=== PATIENT | female | born 1985 | race African-American/Black ===

== ENCOUNTER → 2019-09-13 | Day surgery (SDC) | payer BC ==
[~2019-09-13] MED LIST: FAMOTIDINE20 MG PO; FENTANYL CITRATE/PF 100MCG/2 ML INJ ONE; LIDOCAINE HCL 2% LOCAL INJ 5 ML SDV VIAL INJ ONE; MIDAZOLAM HCL 2 MG/2 ML VIAL ONE; ONDANSETRON HCL8 MG PO; PROPOFOL IV EMULSION 10 MG/ML 20 ML VIAL ONE
--- OUTSIDE RECORDS SUMMARY | 2019-09-13 12:21 | XMS REPORT ---
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 active Latoya Louise Endomyometritis completed - Latoya Louise Dyspareunia (not billable after 07/22/2016) completed - Latoya Louise Vaginal odor active Latoya Louise WELL WOMAN completed - Latoya Louise Poison elmo dermatitis completed - Latoya Louise ENCOUNTERS Date Type Provider Location Encounter Diagnosis - Ambulatory Encounter Latoya Louise [facility] - Ambulatory Encounter Latoya Louise [facility] - Ambulatory Encounter Latoya Hernandez [facility] Vaginal odorAnnual social worker psychiatric examHealth screeningHeavy menstruationStd screening - Ambulatory Encounter Zeina Osman Da[facility] UNK - Ambulatory Encounter Latoya Louise [facility] UNK - Ambulatory Encounter Latoya Fragoso [facility] UNK - Ambulatory Encounter Zeina Cain Tamia Mace [facility] UNK - Ambulatory Encounter Zeina Fragoso Ant Mace [facility] UNK - Ambulatory Encounter Latoya Klein Solange Dani [facility] UNK - Ambulatory Encounter Latoya Louise Latoya Solange Louise [facility] UNK - Ambulatory Encounter Latoya Klein Solange Louise [facility] UNK - Ambulatory Encounter Latoya Louise Latoya Solange Louise [facility] - Ambulatory Encounter Latoya Klein Solange Dani Hernandez [facility] Poison elmo dermatitisWELL WOMANVaginal odorDyspareunia (not billable after 07/22/2016)Endomyometritis - Ambulatory Encounter Fox Thacker [facility] - Ambulatory Encounter [facility] - Ambulatory Encounter Fox Mcelroy [facility] - Ambulatory Encounter Fox Thacker [facility] - Ambulatory Encounter Fox Hernandez [facility] Vaginal odorDyspareunia (not billable after 07/22/2016)Endomyometritis - Ambulatory Encounter Sharda Helm [facility] - Ambulatory Encounter Chani Cadena [facility] - Ambulatory Encounter Chani Cadena [facility] - Ambulatory Encounter Fox Thacker [facility] UNK - Ambulatory Encounter Fox Thacker [facility] UNK - Ambulatory Encounter Fox Thacker [facility] UNK - Ambulatory Encounter Fox Thacker [facility] UNK - Ambulatory Encounter Fox Hernandez [facility] WELL WOMAN - Ambulatory Encounter Selena Hodgsonannika [facility] UNK - Ambulatory Encounter Nohemi Amezquita [facility] UNK - Ambulatory Encounter Nohemi Arvizu [facility] Poison elmo dermatitis - Ambulatory Encounter [facility] V[facility]NS No Information Available Allergies No Known Allergy Information REASON FOR REFERRAL No Information Available RESULTS Date Observation Value Provider Reference Range Interpretation Location Neisseria gonorrhoeae DNA probe Negative [facility] Negative " chlamydia DNA probe Negative [facility] Negative " trichomonas vaginalis, urine Negative [facility] Negative trichomonas vaginalis, urine Negative [facility] Negative Neisseria gonorrhoeae DNA probe Negative [facility] Negative " chlamydia DNA probe Negative [facility] Negative Human Papillomavirus test result HPVNotTested [facility] Neisseria gonorrhoeae DNA probe Negative [facility] Negative " chlamydia DNA probe Negative [facility] Negative hepatitis B surface antigen Negative [facility] Negative " blood glucose, random 97 mg/dL [facility] 65-99 " thyroid stimulating hormone, serum 2.070 u[iU]/mL [facility] 0.450-4.500 " rapid plasma reagin antibody, serum Non Reactive [facility] Non Reactive " hepatitis C antibody, serum <0.1 [facility] 0.0-0.9 " HIV-CMIA (Chemiluminescent Microparticle Immuno Assay) Non Reactive [facility] Non Reactive " rubella antibody, serum, IgG 1.00 [facility] Immune >0.99 " immature granulocytes, percentage of total cells, blood 0 % [facility] " basophil count, absolute 0.0 x10E3/uL [facility] 0.0-0.2 " Eosinophil Absolute Count 0.1 X10E3/UL [facility] 0.0-0.4 " monocyte count, blood, automated 0.5 X10E3/UL [facility] 0.1-0.9 " lymphocyte count, blood, automated 2.2 X10E3/UL [facility] 0.7-3.1 " Absolute Neutrophils 5.5 X10E3/UL [facility] 1.4-7.0 " basophils as percent of blood leukocytes 0 % [facility] " eosinophils as percent of blood leukocytes 1 % [facility] " monocytes as percent of blood leukocytes 6 % [facility] " lymphocytes as percent of blood leukocytes 26 % [facility] " neutrophils as percent of blood leukocytes 67 % [facility] " platelet count 423 X10E3/UL [facility] 150-379 High " red blood cell distribution width 14.2 % [facility] 12.3-15.4 " mean corpuscular hemoglobin concentration, RBC 32.7 G/DL [facility] 31.5-35.7 " mean corpuscular hemoglobin, RBC 30.3 pg [facility] 26.6-33.0 " mean corpuscular volume, RBC 93 fL [facility] 79-97 " hematocrit, blood 37.0 % [facility] 34.0-46.6 " hemoglobin, blood 12.1 g/dL [facility] 11.1-15.9 " erythrocyte (RBC) count 4.00 X10E6/UL [facility] 3.77-5.28 " leukocyte count, blood 8.3 X10E3/UL [facility] 3.4-10.8 HISTORY OF IMMUNIZATIONS No Information Available HISTORY OF MEDICATION USE Medication Instructions Dates Provider Comments METRONIDAZOLE 500 MG ORAL TABLET 1 tab by mouth twice a day - Fox Thacker IBUPROFEN 800 MG ORAL TABLET 1 tab Twice a Day - Latoya Louise DOXYCYCLINE HYCLATE 100 MG ORAL CAPSULE 1 tab Twice a Day for 10 days - Latoya Louise CIPRO 500 MG ORAL TABLET 1 tab Twice a Day for 10 days - Latoya Louise MEDROL 4 MG ORAL TABLET THERAPY PACK use as directed - Latoya Louise SOCIAL HISTORY Date Observation Value Provider social history E&M Single. Not homeless. Born in [facility]. City: [place]. Employed full-time. [address]. Highest education level: 9th-12th grade. Sex at : female. Sexual orientation: Heterosexual. Gender identity: Female. Gender of partner(s): male. Age of first sexual intercourse: 17. Sexually Active: yes. Chani Cadena " social history reviewed E&M reviewed today Chani Cadena " sexual orientation Heterosexual Chani Cadena " passive cigarette smoke exposure No Chani Cadena " smoking status never smoker Chani Cadena time of call 06/09/2019 12:46 PM Eloise Osman time of call 06/06/2019 3:11 PM Yumi Christina time of call 06/06/2019 11:54 AM Ant Mace time of call 06/06/2019 11:49 AM Ant Mace social history reviewed E&M reviewed today Aileen Hernandez " social history E&M Single. Not homeless. Born in [facility]. City: [place]. Employed full-time. [address]. Highest education level: 9th-12th grade. Sex at : female. Sexual orientation: Heterosexual. Gender identity: Female. Gender of partner(s): male. Age of first sexual intercourse: 17. Sexually Active: yes. Aileen Hernandez " Occupation [address] Aileen Hernandez " drug use, illicit Never Aileen Hernandez " alcohol use Currently Aileen Hernandez " sexual orientation Heterosexual Aileen Hernandez " is there any chance that you could be ? No Aileen Hernandez " passive cigarette smoke exposure No Aileen Hernandez " sexual orientation Heterosexual Aileen Hernandez " is there any chance that you could be ? No Aileen Hernandez " passive cigarette smoke exposure No Aileen Hernandez " smoking status never smoker Aileen Hernandez social history E&M Single. Not homeless. Born in [facility]. City: [place]. Not employed. Unemployed. Highest education level: 9th-12th grade. Gender identity: Female. Gender of partner(s): male. Age of first sexual intercourse: 17. Sexually Active: Yes. Sex at : female. Aileen Hernandez " social history reviewed E&M reviewed today Aileen Hernandez " is there any chance that you could be ? No Aileen Hernandez " passive cigarette smoke exposure No Aileen Hernandez " smoking status never smoker Aileen Hernandez Occupation #1 Unemployed Nohemi Amezquita " drug use, illicit Never Shawnee Good " alcohol use, frequency holidays/special occasions only Shawnee Good " alcohol use Currently Shawnee Good " social history reviewed E&M reviewed today Shawnee Good " social history E&M Single. Not homeless. Born in [facility]. City: [place]. Not employed. Unemployed. Highest education level: 9th-12th grade. Gender identity: Female. Gender of partner(s): male. Age of first sexual intercourse: 17. Sexually Active: Yes. Sex at : female. Nohemi Amezquita " sex at female Shawnee Good " patient considered to be homeless No Shawnee Arvizu " passive cigarette smoke exposure No Shawnee Nolberto " smoking status never smoker Shawnee Arvizu " is there any chance that you could be ? No Shawnee Arvizu " Exercise Program Referral Renato Arvizu " Weight Management Counseling Provided Renato Arvizu " Nutrition intervention Renato Arvizu FUNCTIONAL STATUS No Information Available MENTAL STATUS Date Observation Value Provider Generalized Anxiety Disorder Questionnaire - Question 2 0 Chani Cadena " Generalized Anxiety Disorder Questionnaire - Question 1 0 Chani Cadena Generalized Anxiety Disorder Questionnaire - Question 2 0 Aileen Hernandez " Generalized Anxiety Disorder Questionnaire - Question 1 0 Aileen Hernandez assessment of judgment and insight E&M intact Fox Thacker " assessment of mood and affect E&M no depression, anxiety, or agitation Fox Thacker " Generalized Anxiety Disorder Questionnaire - Question 2 0 Aileen Hernandez " Generalized Anxiety Disorder Questionnaire - Question 1 0 Aileen Hernandez assessment of judgment and insight E&M intact Fox Thacker " assessment of mood and affect E&M no depression, anxiety, or agitation Fox Thacker " Generalized Anxiety Disorder Questionnaire - Question 2 0 Aileen Hernandez " Generalized Anxiety Disorder Questionnaire - Question 1 0 Aileen Hernandez assessment of judgment and insight E&M intact Nohemi Amezquita " assessment of mood and affect E&M no depression, anxiety, or agitation Abelyesenia Alirio " Generalized Anxiety Disorder Questionnaire - Question 2 0 Shawnee Good " Generalized Anxiety Disorder Questionnaire - Question 1 0 Shawnee Good MEDICAL EQUIPMENT No Information Available FAMILY HISTORY No Information Available INSURANCE PROVIDERS Payer name Policy type / Coverage type Covered libertarian ID [employer]iding [employer] insurance company [id number] [email or web address] [facility] [employer] Other [id number] ADVANCE DIRECTIVES Name Date DISCUSSED - NO DECISION MADE TREATMENT PLAN Date Name Chlamydia/GC Amplification (Cervical) Vaginitis/Vaginosis, DNA Probe (Affirm) ([facility]) RPR, Rfx Qn RPR/Confirm TP HIV 1/2 ANTIGEN/ANTIBODY, FOURTH GENERATION W/RFL HBsAg Screen HCV Antibody TSH Rfx on Abnormal to Free T4 Pap w/HPV w rflx 16/18/45 (30+) Lipid Panel Comp. Metabolic Panel (14) CBC With Differential/Platelet Chlamydia/GC Amplification (Cervical) Vaginitis/Vaginosis, DNA Probe (Affirm) ([facility]) Chlamydia/GC Amplification Vaginitis/Vaginosis, DNA Probe (Affirm) TSH Rfx on Abnormal to Free T4 RPR Rubella Antibodies, IgG Pap IG, rfx HPV ASCU (21-29) HIV 1/2 ANTIGEN/ANTIBODY, FOURTH GENERATION W/RFL HCV Antibody HBsAg Screen Glucose, Serum Chlamydia/GC Amplification CBC With Differential/Platelet Est Patient Well Exam (18 - 39 Yrs) - 32260 Est Patient Exp Problem - 05709 Est Patient Exp Problem - 30916 [place] - In House Urinalysis - - In House Urinalysis - Dip only - In House Handling of specimen for transfer Venipuncture New Patient Well Exam (18 - 39 Yrs) - 80153 Injection, methylprednisolone sodium succinate, up to 40 mg New Patient Problem Focus - 47020 Injection, medroxyprogesterone acetate (Depo), 150 mg IM or SQ Injection HISTORY OF PROCEDURES Procedure Date Procedure Name Provider Procedure Notes Status [place] - In House Fox Thacker completed Urinalysis - - In House Fox Thackre completed Urinalysis - Dip only - In House Fox Thacker completed Venipuncture Fox Thacker completed Injection, methylprednisolone sodium succinate, up to 40 mg Nohemi Amezquita completed GOALS No Information Available HEALTH CONCERNS No Information Available
--- OUTSIDE RECORDS SUMMARY | 2019-09-13 12:21 | XMS REPORT ---
Author Author Admin, [place] Organization [facility] Address [address] [place] [address] Phone Allergies, Adverse Reactions, Alerts Allergy Name Reaction Description Start Date Severity Status Provider No Known Allergies Aileen Hernandez CMA Conditions or Problems Problem Name Problem Code Onset Date Status Entry Date Provider Comment Standard Description Annotate Vaginitis and vulvovaginitis 616.10 Active Laotya Louise MD Vaginitis and vulvovaginitis, unspecified Dyspareunia (not billable after 07/22/2016) ICD-625.0 Inactive Latoya Louise MD Endomyometritis ICD-615.9 Inactive Latoya Louise MD Pelvic pain 625.9 Inactive Fox Thacker DO Unspecified symptom associated with female genital organs WELL WOMAN ICD-V72.31 Inactive Latoya Louise MD Poison elmo dermatitis ICD-692.6 Inactive Latoya Louise MD Dyspareunia (not billable after 07/22/2016) 625.0 Resolved Latoya Louise MD Dyspareunia Endomyometritis 615.9 Resolved Latoya Louise MD Unspecified inflammatory disease of uterus WELL WOMAN V72.31 Resolved Latoya Louise MD Routine gynecological examination Poison elmo dermatitis 692.6 Resolved Latoya Louise MD Contact dermatitis and other eczema due to plants [except food] Medication List Medication Instructions Start Date Stop Date Generic Name NDC Status Provider Patient Instruction FLUCONAZOLE 150 MG ORAL TABLET take 1 tab By Mouth daily FLUCONAZOLE 09787618987 Active Latoya Louise MD Active METRONIDAZOLE 500 MG ORAL TABLET 1 tab by mouth twice a day METRONIDAZOLE 500 MG ORAL TABLET 420972 METRONIDAZOLE Inactive CIPRO 500 MG ORAL TABLET 1 tab Twice a Day for 10 days CIPRO 500 MG ORAL TABLET 218123 CIPROFLOXACIN HCL Inactive DOXYCYCLINE HYCLATE 100 MG ORAL CAPSULE 1 tab Twice a Day for 10 days DOXYCYCLINE HYCLATE 100 MG ORAL CAPSULE 8198198 DOXYCYCLINE HYCLATE Inactive IBUPROFEN 800 MG ORAL TABLET 1 tab Twice a Day IBUPROFEN 800 MG ORAL TABLET 827773 IBUPROFEN Inactive MEDROL 4 MG ORAL TABLET THERAPY PACK use as directed MEDROL 4 MG ORAL TABLET THERAPY PACK 172422 METHYLPREDNISOLONE Inactive METRONIDAZOLE 500 MG ORAL TABLET 1 tab by mouth twice a day METRONIDAZOLE 48460938011 No Longer Active Fox Thacker DO Active CIPRO 500 MG ORAL TABLET 1 tab Twice a Day for 10 days CIPROFLOXACIN HCL 98203674975 No Longer Active Latoya Louise MD Active DOXYCYCLINE HYCLATE 100 MG ORAL CAPSULE 1 tab Twice a Day for 10 days DOXYCYCLINE HYCLATE 11013660240 No Longer Active Latoya Louise MD Active IBUPROFEN 800 MG ORAL TABLET 1 tab Twice a Day IBUPROFEN 94938638999 No Longer Active Latoya Louise MD Active MEDROL 4 MG ORAL TABLET THERAPY PACK use as directed METHYLPREDNISOLONE 47316656450 No Longer Active Latoya Louise MD Active Advance Directives Directive Description Start Date DISCUSSED - NO DECISION MADE Vital Signs Date Name Value Unit Range Description blood pressure, diastolic 87 mm[Hg] BP bell blood pressure, systolic 125 mm[Hg] BP sys height E&M 59 [in_us] Bdy height pulse rate E&M 95 /min Heart rate temperature E&M 98.4 [degF] Body temperature weight E&M 132 [lb_av] Weight Measured Diagnostic Results Date Name Value Unit Range Description Lab Report: Vaginitis/Vaginosis, DNA Probe, Chlamydia/GC Amplification - Microbiology Neisseria gonorrhoeae DNA probe Negative Negative Lab Report: CBC With Differential/Platelet, Rubella Antibodies, IgG, Orellana ... - Hematology hematocrit, blood 37.0 % 34.0-46.6 Lab Report: CBC With Differential/Platelet, Rubella Antibodies, IgG, Orellana ... - Chemistry thyroid stimulating hormone, serum 2.070 u[iU]/mL 0.450-4.500 Lab Report: CBC With Differential/Platelet, Rubella Antibodies, IgG, Orellana ... - Hematology neutrophils as percent of blood leukocytes 67 % basophils as percent of blood leukocytes 0 % Lab Report: CBC With Differential/Platelet, Rubella Antibodies, IgG, Orellana ... - Serology rapid plasma reagin antibody, serum Non Reactive Non Reactive rubella antibody, serum, IgG 1.00 Immune >0.99 Lab Report: CBC With Differential/Platelet, Rubella Antibodies, IgG, Orellana ... - Chemistry hepatitis B surface antigen Negative Negative Lab Report: CBC With Differential/Platelet, Rubella Antibodies, IgG, Orellana ... - Hematology mean corpuscular hemoglobin, RBC 30.3 pg 26.6-33.0 mean corpuscular hemoglobin concentration, RBC 32.7 G/DL % 31.5-35.7 erythrocyte (RBC) count 4.00 X10E6/UL 10*6/mm3 3.77-5.28 hemoglobin, blood 12.1 g/dL 11.1-15.9 Lab Report: CBC With Differential/Platelet, Rubella Antibodies, IgG, Orellana ... - Serology hepatitis C antibody, serum <0.1 0.0-0.9 Lab Report: CBC With Differential/Platelet, Rubella Antibodies, IgG, Orellana ... - Chemistry Absolute Neutrophils 5.5 X10E3/UL 10*3/uL 1.4-7.0 Lab Report: CBC With Differential/Platelet, Rubella Antibodies, IgG, Orellana ... - Hematology lymphocytes as percent of blood leukocytes 26 % mean corpuscular volume, RBC 93 fL 79-97 basophil count, absolute 0.0 x10E3/uL 0.0-0.2 monocytes as percent of blood leukocytes 6 % Lab Report: Vaginitis/Vaginosis, DNA Probe, Chlamydia/GC Amplification - Urinalysis trichomonas vaginalis, urine Negative Negative Lab Report: Pap IG, rfx HPV ASCU - Lab Human Papillomavirus test result HPVNotTested Lab Report: CBC With Differential/Platelet, Rubella Antibodies, IgG, Orellana ... - Hematology Eosinophil Absolute Count 0.1 X10E3/UL 10*3/uL 0.0-0.4 eosinophils as percent of blood leukocytes 1 % Lab Report: Vaginitis/Vaginosis, DNA Probe, Chlamydia/GC Amplification - Lab chlamydia DNA probe Negative Negative Lab Report: CBC With Differential/Platelet, Rubella Antibodies, IgG, Orellana ... - Chemistry blood glucose, random 97 mg/dL 65-99 Lab Report: CBC With Differential/Platelet, Rubella Antibodies, IgG, Orellana ... - Hematology red blood cell distribution width 14.2 % 12.3-15.4 leukocyte count, blood 8.3 X10E3/UL 10*3/mm3 3.4-10.8 monocyte count, blood, automated 0.5 X10E3/UL 10*3/uL 0.1-0.9 Lab Report: CBC With Differential/Platelet, Rubella Antibodies, IgG, Orellana ... - Chemistry immature granulocytes, percentage of total cells, blood 0 % Lab Report: CBC With Differential/Platelet, Rubella Antibodies, IgG, Orellana ... - Hematology platelet count 423 X10E3/UL 10*3/mm3 800-064 2059/06/07 lymphocyte count, blood, automated 2.2 X10E3/UL 10*3/mm3 0.7-3.1 Encounters Date Encounter Provider Code Facility 16:48:39 CDT Est Patient Exp Problem - 91802 Latoya Louise MD CPT-48214 [facility] DISPOSITION CLERK 23:04:19 CDT Est Patient Exp Problem - 47662 Fox Thacker DO CPT-73779 [facility] 11:15:35 CDT New Patient Problem Focus - 68791 Nohemi Amezquita POCKET GRINDER OPERATOR CPT-35508 [facility] Procedures Code Procedure Name Date Entry Date Standard Description CPT-45634 [place] - In House 10:14:37 CDT CPT-64597 Urinalysis - - In House 10:14:36 CDT CPT-65006 Urinalysis - Dip only - In House 10:14:36 CDT CPT-61415 Handling of specimen for transfer 10:14:36 CDT CPT-21476 Venipuncture 10:14:36 CDT CPT-31471 New Patient Well Exam (18 - 39 Yrs) - 10183 10:14:35 CDT CPT-J2920 Injection, methylprednisolone sodium succinate, up to 40 mg 13:15:27 CDT
--- OUTSIDE RECORDS SUMMARY | 2019-09-13 12:21 | XMS REPORT ---
Author Orlando Prasad [facility] eClinicalWorks Address Unknown Phone Unavailable Care Team Providers Care Drilling And Production Superintendent Name Role Phone Orlando Guido CP Unavailable Allergies, Adverse Reactions, Alerts Substance Reaction Event Type N.K.D.A. Info Not Available Non Drug Allergy Problems Problem Type Condition Code Onset Dates Condition Status Assessment Screening for cervical cancer Z12.4 Active Assessment Herpes simplex vulvovaginitis A60.04 Active Problem Herpes simplex vulvovaginitis A60.04 Active Medications Medication Code System Code Instructions Start Date End Date Status Dosage Acyclovir [facility] [id number] 400 MG Orally three times a day Nov 09, 2017 Active 1 tablet Results Name Result Date Reference Range Unit Abnormality Flag HSV,CULTURE and TYPING, (719769) [facility] Pap IG, Ct-Ng, HPV-hr (275111) >30 +STD ----Chlamydia, Nuc. Acid Amp Negative 20171109 Negative ----Gonococcus, Nuc. Acid Amp Negative 20171109 Negative ----Test Methodology: TNP 20171109 ----HPV, high-risk Negative 20171109 Negative ----. . 20171109 Summary Purpose eClinicalWorks Submission
--- OUTSIDE RECORDS SUMMARY | 2019-09-13 12:22 | XMS REPORT ---
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 Latoya Louise Endomyometritis completed - Latoya Louise Dyspareunia (not billable after 07/22/2016) completed - Latoya Louise Vaginal odor active Latoya Louise WELL WOMAN completed - Latoya Louise Poison elmo dermatitis completed - Latoya Louise ENCOUNTERS Date Type Provider Location Encounter Diagnosis - Ambulatory Encounter Latoya Louise [facility] UNK - Ambulatory Encounter Latoya Louise [facility] [place] [facility] [employer] UNK - Ambulatory Encounter Latoya Louise [facility] [place] [facility] [facility] [employer] UNK - Ambulatory Encounter Latoya Louise [facility] [place] [facility]INE [employer] [facility] UNK - Ambulatory Encounter Latoya Hernandez [facility] [place] [facility] MARINE [employer] [employer] Vaginal odorAnnual die drawing checker examHealth screeningHeavy menstruationStd screening - Ambulatory Encounter [facility] [place] UNK - Ambulatory Encounter [facility]K - Ambulatory Encounter Latoya Herndonlymiah Christina Zeina [facility] [place] [facility] UNK - Ambulatory Encounter Zeina Fragoso [facility] UNK - Ambulatory Encounter Zeina Fragoso [facility] UNK - Ambulatory Encounter [facility] [place] [facility] UNK - Ambulatory Encounter Latoya Louise [facility] [place] [facility] [employer] [facility] UNK - Ambulatory Encounter Latoya Louise [facility] [place] [facility] [employer] [employer] [facility] UNK - Ambulatory Encounter Latoay Klein [facility] [place] [facility] [employer] UNK - Ambulatory Encounter Latoya [facility] [place] [facility] Poison elmo dermatitisWELL WOMANVaginal odorDyspareunia (not billable after 07/22/2016)Endomyometritis - Ambulatory Encounter [facility] UNK - Ambulatory Encounter Fox Thacker [facility] UNK - Ambulatory Encounter [facility] UNK - Ambulatory Encounter Fox Thacker [facility] UNK - Ambulatory Encounter Fox Hernandez [facility] Vaginal odorDyspareunia (not billable after 07/22/2016)Endomyometritis - Ambulatory Encounter Sharda [facility] UNK - Ambulatory Encounter Chani Buiza [facility] UNK - Ambulatory Encounter Chani Buiza [facility] UNK - Ambulatory Encounter Fox Thacker [facility] UNK - Ambulatory Encounter Fox Thacker [facility] UNK - Ambulatory Encounter Fox Thacker [facility] UNK - Ambulatory Encounter Fox Thacker [facility] UNK - Ambulatory Encounter Fox Hernandez [facility] WELL WOMAN - Ambulatory Encounter Selena Minor [facility] UNK - Ambulatory Encounter Nohemi Amezquita [facility] UNK - Ambulatory Encounter Nohemi Monge Mosgulynn Arvizu [facility] Poison elmo dermatitis - Ambulatory Encounter Nohemi [facility] UNK VITAL SIGNS No Information Available Allergies No Known Allergy Information REASON FOR REFERRAL No Information Available RESULTS Date Observation Value Provider Reference Range Interpretation Location hepatitis B surface antigen Negative [facility] Negative " thyroid stimulating hormone, serum 1.190 u[iU]/mL [facility] 0.450-4.500 " hepatitis C antibody, serum <0.1 [facility] 0.0-0.9 " HIV-CMIA (Chemiluminescent Microparticle Immuno Assay) Non Reactive [facility] Non Reactive " rapid plasma reagin antibody, serum Non Reactive [facility] Non Reactive " LDL cholesterol, serum 87 mg/dL [facility] 0-99 " very low density lipoproteins 13 mg/dL [facility] 5-40 " HDL cholesterol, serum 83 mg/dL [facility] >39 " triglyceride, serum, fasting 66 mg/dL [facility] 0-149 " cholesterol, serum 183 mg/dL [facility] 100-199 " alanine aminotransferase (SGPT), serum 28 1/L [facility] 0-32 " aspartate aminotransferase (SGOT), serum 40 1/L [facility] 0-40 " alkaline phosphatase, serum 44 1/L [facility] 39-117 " bilirubin, serum, total 0.7 mg/dL [facility] 0.0-1.2 " albumin/globulin ratio, serum 1.7 [facility] 1.2-2.2 " globulin, serum 2.8 [facility] 1.5-4.5 " albumin, serum 4.8 g/dL [facility] 3.5-5.5 " protein, total, serum 7.6 g/dL [facility] 6.0-8.5 " calcium, serum 9.7 mg/dL [facility] 8.7-10.2 " carbon dioxide, venous blood 23 mmol/L [facility] 20-29 " chloride, serum 99 mmol/L [facility] 96-106 " potassium, serum 4.1 mmol/L [facility] 3.5-5.2 " sodium, serum 142 mmol/L [facility] 134-144 " urea nitrogen/creatinine ratio, serum 16 [facility] 9-23 " eGFR if 94 mL/min/((173/100).m2) [facility] >59 " Estimated Glomerular Filtration Rate (calc) 82 mL/min/((173/100).m2) [facility] >59 " creatinine, serum 0.93 mg/dL [facility] 0.57-1.00 " urea nitrogen, blood 15 mg/dL [facility] 6-20 " blood glucose, random 90 mg/dL [facility] 65-99 " immature granulocytes, percentage of total cells, blood 0 % [facility] Not Estab. " basophil count, absolute 0.0 x10E3/uL [facility] 0.0-0.2 " Eosinophil Absolute Count 0.1 X10E3/UL [facility] 0.0-0.4 " monocyte count, blood, automated 0.4 X10E3/UL [facility] 0.1-0.9 " lymphocyte count, blood, automated 2.8 X10E3/UL [facility] 0.7-3.1 " Absolute Neutrophils 5.3 X10E3/UL [facility] 1.4-7.0 " basophils as percent of blood leukocytes 0 % [facility] Not Estab. " eosinophils as percent of blood leukocytes 2 % [facility] Not Estab. " monocytes as percent of blood leukocytes 5 % [facility] Not Estab. " lymphocytes as percent of blood leukocytes 33 % [facility] Not Estab. " neutrophils as percent of blood leukocytes 60 % [facility] Not Estab. " platelet count 379 X10E3/UL [facility] 150-450 " red blood cell distribution width 13.1 % [facility] 12.3-15.4 " mean corpuscular hemoglobin concentration, RBC 33.2 G/DL [facility] 31.5-35.7 " mean corpuscular hemoglobin, RBC 30.8 pg [facility] 26.6-33.0 " mean corpuscular volume, RBC 93 fL [facility] 79-97 " hematocrit, blood 38.3 % [facility] 34.0-46.6 " hemoglobin, blood 12.7 g/dL [facility] 11.1-15.9 " erythrocyte (RBC) count 4.12 X10E6/UL [facility] 3.77-5.28 " leukocyte count, blood 8.7 X10E3/UL [facility] 3.4-10.8 Neisseria gonorrhoeae DNA probe Negative [facility] Negative [...] MEDICATION USE Medication Instructions Dates Provider Comments FLUCONAZOLE 150 MG ORAL TABLET take 1 tab By Mouth daily - Latoya Louise METRONIDAZOLE 500 MG ORAL TABLET 1 tab [...] history E&M Single. Not homeless. Born in [facility]. City: [place]. Employed full-time. [employer]. Highest education level: 9th-12th grade. Sex [...] history E&M Single. Not homeless. Born in [facility]. City: [place]. Employed full-time. [employer]. Highest education level: 9th-12th grade. Sex [...] history E&M Single. Not homeless. Born in [facility]. City: [place]. Not employed. Unemployed. Highest education level: 9th-12th [...] history E&M Single. Not homeless. Born in [facility]. City: [place]. Not employed. Unemployed. Highest education level: 9th-12th grade. Gender identity: Female. Gender of partner(s): male. Age of first sexual intercourse: 17. Sexually Active: Yes. Sex at : female. Nohemi Amezquita " sex at female [place] [facility] " patient considered to be homeless No [place] Nolberto " passive cigarette smoke exposure No [place] Good " smoking status never smoker [place] " is there any chance that you could be ? No [place] Ar[facility]izu " Exercise Program Referral T [place] Arvizu " Weight Management Counseling Provided T [place] Arvizu " Nutrition intervention T [place] Arvizu FUNCTIONAL STATUS No Information Available MENTAL [...] affect E&M no depression, anxiety, or agitation Nohemi Amezquita " Generalized Anxiety Disorder Questionnaire - Question 2 0 [place] " Generalized Anxiety Disorder Questionnaire - Question 1 0 [place] Good MEDICAL EQUIPMENT No Information Available FAMILY HISTORY No Information Available INSURANCE PROVIDERS Payer name Policy type / Coverage type Covered alliance party ID Sliding Fee Scale [employer] insurance company [id number] [employer] [facility] Health Care Mychal Other [id number] ADVANCE DIRECTIVES Name Date DISCUSSED - NO [...] Glucose, Serum Chlamydia/GC Amplification CBC With Differential/Platelet IM or SQ Injection Injection, medroxyprogesterone acetate (Depo), 150 mg Est Patient Well Exam (18 - 39 Yrs) - 98430 Est Patient Exp Problem - 19062 Est Patient Exp Problem - 16238 [place] - In House Urinalysis - - In House Urinalysis - Dip only - In House Handling of specimen for transfer Venipuncture New Patient Well Exam (18 - 39 Yrs) - 94620 Injection, methylprednisolone sodium succinate, up to 40 mg New Patient Problem Focus - 02995 HISTORY OF PROCEDURES Procedure Date Procedure Name Provider Procedure Notes Status IM or SQ Injection Latoya Louise completed Injection, medroxyprogesterone acetate (Depo), 150 mg Latoya Louise completed [place] - In House Fox Thacker completed Urinalysis - - In House Fox Thacker completed Urinalysis - Dip only - In House Fox Thacker completed Venipuncture Fox Thacker completed Injection, methylprednisolone sodium succinate, up to 40 mg Nohemi Amezquita completed GOALS No Information Available HEALTH CONCERNS No Information Available
[2019-09-13 14:35] LABS: ALANINE AMINOTRANSFERASE 21 IU/L (0-55); ALBUMIN 4.1 g/dL (3.5-5.0); ALBUMIN/GLOBULIN RATIO 1.3 (0.8-2.0); ALKALINE PHOSPHATASE 40 IU/L (40-150); ANION GAP 12.7 mmol/L (8-16); BLOOD UREA NITROGEN 10 mg/dL (7-26); BUN/CREATININE RATIO 12 (6-25); CALCIUM 9.3 mg/dL (8.4-10.2); CARBON DIOXIDE 24 mmol/L (22-29); CHLORIDE 107 mmol/L (98-107); CREATININE, SERUM 0.82 mg/dL (0.57-1.11); EST GLOMERULAR FILTRATION RATE > 60 ML/MIN (60-); GLUCOSE 80 mg/dL (74-118); POTASSIUM 3.7 mmol/L (3.5-5.1); SODIUM 140 mmol/L (136-145)
--- NOTE | 2019-09-13 18:52 | Operative Report ---
DATE OF PROCEDURE: 09/13/2019 SURGEON: Jorgito Harman MD PROCEDURE: EGD with biopsies. INDICATIONS FOR EGD: Dyspepsia. MEDICATIONS: The patient was done under MAC, please see anesthesiologist's note. PROCEDURE IN DETAIL: With the patient in left lateral decubitus position, a flexible fiberoptic Olympus gastroscope was introduced into the esophagus under direct visualization without any difficulty. There was some patchy erythema noted in distal esophagus. Of note, some prominent subepithelial veins were noted in the esophagus versus early esophageal varices. The scope was then advanced with ease into the stomach traversing a small sliding hiatal hernia. Mucosa overlying the antrum and the body revealed some patchy erythema and low-grade to moderate edema and biopsies were obtained, sent to stain for H pylori. Pylorus was of normal contour and shape, was intubated with ease and the scope was advanced all the way to the second portion of the duodenum. Biopsies were obtained from the proximal second portion and duodenal bulb to rule out sprue. The scope was then withdrawn back into the stomach and retroflexed and mucosa overlying the fundus and cardia appeared to be within normal limits. The scope was then straightened out, it was subsequently withdrawn. The patient tolerated procedure well. IMPRESSION: 1. Distal esophagitis, mild. 2. Small sliding hiatal hernia. 3. Gastritis, biopsied. Biopsies sent to stain for H pylori. 4. Rule out sprue. PLAN: Follow up histology. Initiate Protonix 40 mg one p.o. q.a.m. a.c. Check LFTs. Jorgito Harman MD [facility] [place] /[id number]
== END | disposition home or self-care (01) ==
LOC: OR 12:18
PROVIDERS: ATTEND Internal Medicine Gastroenterology
DX: R10.13 Epigastric pain (principal); R14.0 Abdominal distension (gaseous); R11.0 Nausea; K59.00 Constipation, unspecified; K21.9 Gastro-esophageal reflux disease without esophagitis; K21.0 Gastro-esophageal reflux disease with esophagitis; K44.9 Diaphragmatic hernia without obstruction or gangrene; K29.70 Gastritis, unspecified, without bleeding; K29.50 Unspecified chronic gastritis without bleeding; B96.81 Helicobacter pylori [H. pylori] as the cause of diseases classified elsewhere; Z01.812 Encounter for preprocedural laboratory examination
CPT/HCPCS: 36415; 43239; 80053; 81025; J2001; J2250; J2704; J3010